=== PATIENT | female | born 1950 | race Caucasian/White ===

== ENCOUNTER 2023-08-26 10:47 | Outpatient (OUT) | payer MEDICARE, OTHER, SELFPAY ==
--- NOTE | 2023-08-26 11:06 | CT_ITS ---
[address] [address] Patient Name: PINA MEREDITH MRN: [id number] date: 1950 Sex: F Assigned Patient Location: LAB Current Patient Location: Accession/Order Number: [id number] Exam Date: 08/26/2023 11:55 Report Date: 08/27/2023 06:40 At the request of: FREDRICK BILLY Procedure: CT abdomen pelvis wo/w con EXAMINATION: CT abdomen pelvis wo/w con HISTORY: Left Lower Quadrant Abdominal Pain R10.32 COMPARISON: CT abdomen pelvis 10/16/2022 TECHNIQUE: Axial, Coronal, and Sagittal images were obtained without and/or with IV contrast as indicated by examination type. Dose reduction techniques were achieved by using automated exposure control and/or adjustment of mA and/or kV according to patient size and/or use of iterative reconstruction technique. FINDINGS: LUNG BASES: No visible pulmonary or pleural disease. LIVER: No enlargement, atrophy, suspicious density, or significant focal lesion. BILIARY: Cholecystectomy. PANCREAS: No lesion, fluid collection, or abnormal duct dilatation. SPLEEN: No enlargement or focal lesion. ADRENALS: 3.0 x 1.9 cm right adrenal mass with areas of fat density favoring a benign adenoma. KIDNEYS: No mass, obstruction, or calcification. BOWEL/MESENTERY: Diverticulosis of descending and sigmoid colon. Trace amount of stranding within the pericolonic fat adjacent proximal descending colon. No visible mass, obstruction, or bowel wall thickening. Normal appendix. AORTA/VASCULAR: No aneurysm or dissection. RETROPERITONEUM: No mass or adenopathy. LYMPH NODES: No adenopathy. URINARY BLADDER: No visible focal wall thickening, lesion, or calculus. PELVIC ORGANS: 2.4 cm left ovarian cyst. ABDOMINAL WALL: No mass or hernia. BONES: Mechanical fusion L4-5 with grade 1-2 anterior listhesis of L4-5 and intervertebral disc spacer. OTHER: Negative. CT/CT abdomen pelvis wo/w con IMPRESSION: 1. Left ovarian 2.4 cm cyst; unexpected in a patient this age. Consider follow-up ultrasound evaluation. 2. Minimal fat stranding adjacent the sigmoid colon; mild acute diverticulitis versus chronic changes. Electronically authenticated by: GREGG ROBB Date: 08/27/2023 06:40
[2023-08-26 11:20] LABS: Anion Gap 18.5; BUN Creatinine Ratio 19.6; Calcium 9.3 mg/dL (8.5-10.1); Carbon Dioxide 22.1 mmol/L (21.0-32.0); Chloride 104 mmol/L (98-107); Estimated GFR (African America >60 (>=60); Estimated GFR (Non-African Ame 50 (>=60); Glucose 76 mg/dL (74-106); Sodium 140 mmol/L (136-145)
[2023-08-26 11:25] LABS: Estimated Average Glucose 206 mg/dL; Glycohemoglobin A1C 8.8 % (4.5-6.2)
[2023-08-26 11:36] LABS: Potassium 4.6 mmol/L (3.5-5.1)
[2023-08-26 11:38] LABS: Alanine Aminotransferase 26 U/L (14-59); Albumin Globulin Ratio 0.7; Albumin Level 3.2 g/dL (3.4-5.0); Alkaline Phosphatase 61 U/L (46-116); Aspartate Amino Transferase 21 U/L (15-37); Bilirubin Direct 0.1 mg/dL (0.0-0.2); Bilirubin Total 0.4 mg/dL (0.2-1.0); Chol HDL Ratio 4.3; Cholesterol 246 mg/dL (<=200); Globulin 4.3 g/dL; HDL Cholesterol 57 mg/dL (40-60); Thyroid Stimulating Hormone 1.726 uIU/mL (0.358-3.740); Total Protein 7.5 g/dL (6.4-8.2); Triglycerides 144 mg/dL (<=150); VLDL CHOLESTEROL 28.8 mg/dL
[2023-08-26 11:49] LABS: Basophils Absolute Auto 0.1 10^3/uL (0.0-0.1); Basophils Percent Auto 1.1 % (0.2-2.0); Eosinophils Absolute Auto 0.2 10^3/uL (0.0-0.7); Eosinophils Percent Auto 2.8 % (0.9-7.0); Hematocrit 35.1 % (36.0-48.0); Immature Granulocytes Abs Auto 0.02 10^3/uL (0.00-0.03); Immature Granulocytes Pct Auto 0.3 % (0.0-0.5); Lymphocytes Absolute Auto 2.7 10^3/uL (1.2-3.8); Lymphocytes Percent Auto 37.4 % (20.5-60.0); Mean Corpuscular HGB Conc 31.3 g/dL (29.9-35.2); Mean Corpuscular Hemoglobin 27.6 pg (26.7-34.0); Mean Platelet Volume 10.6 fL (9.5-13.5); Monocytes Absolute Auto 0.5 10^3/uL (0.3-0.8); Monocytes Percent Auto 6.6 % (1.7-12.0); Neutrophils Absolute Auto 3.7 10^3/uL (1.4-6.5); Neutrophils Percent Auto 51.8 % (43.0-75.0); Platelet Count 291 10^3/uL (150-450); Red Blood Count 3.99 10^6/uL (4.20-5.40); Red Cell Distribution Width 13.7 % (11.0-15.0); White Blood Count 7.2 10^3/uL (4.0-11.0)
== END 2023-08-26 10:48 | disposition home or self-care (01) ==
LOC: LAB 10:47
PROVIDERS: PCP Family Medicine; Visit Provider Family Medicine
DX: R10.32 Left lower quadrant pain (principal); K57.30 Diverticulosis of large intestine without perforation or abscess without bleeding; E11.65 Type 2 diabetes mellitus with hyperglycemia; Z79.4 Long term (current) use of insulin; I10 Essential (primary) hypertension; E78.5 Hyperlipidemia, unspecified; E66.01 Morbid (severe) obesity due to excess calories; Z79.899 Other long term (current) drug therapy; N83.202 Unspecified ovarian cyst, left side
CPT/HCPCS: 36415; 74178; 80048; 80061; 80076; 83036; 84443; 85025; Q9967

== ENCOUNTER 2023-09-23 09:31 | Outpatient (OUT) | payer MEDICARE, OTHER, SELFPAY ==
--- NOTE | 2023-09-23 09:33 | MM_ITS ---
Patient Name: PINA MEREDITH MR#: [id number] : 1950 Exam Date: 09/23/2023 Ordering Doctor: DR Anival Tran . RADIOLOGY REPORT PROCEDURE: MM TOMOSYNTHESIS SCREENING BI COMPARISON: MG MAMM SCREEN 3D ISAIAH CAD, 09/16/2022. MG MAMM SCREEN 3D ISAIAH CAD, 08/21/2020. INDICATIONS: Screening Calculator Name NCI Breast Cancer Risk Assessment Tool 5 Year Breast Cancer Risk 1.60% Lifetime Breast Cancer Risk 3.90% Personal Breast Cancer No Personal Ovarian Cancer No Treatments None Family Cancers None LOCATION: [facility] BREAST COMPOSITION: There are scattered areas of fibroglandular density. FINDINGS: DIAGNOSTIC CATEGORY 1--NEGATIVE. NO CHANGE FROM COMPARISON ASSESSMENT. Scattered benign-appearing calcifications are present. Scattered benign-appearing lymph nodes are present. RIGHT BREAST: No significant suspicious finding. LEFT BREAST: No significant suspicious finding. RECOMMENDATIONS: ROUTINE MAMMOGRAM AND CLINICAL EVALUATION IN 12 MONTHS. PLEASE NOTE: A NORMAL MAMMOGRAM DOES NOT EXCLUDE THE POSSIBILITY OF BREAST CANCER. A CLINICALLY SUSPICIOUS PALPABLE LUMP SHOULD BE BIOPSIED. Dictated by: Efrem Chen MD on 09/23/2023 at 13:56 Approved by: Efrem Chen MD on 09/23/2023 at 13:57
== END 2023-09-23 09:32 | disposition home or self-care (01) ==
LOC: MAMMO 09:32
PROVIDERS: PCP Family Medicine; Visit Provider Family Medicine
DX: Z12.31 Encounter for screening mammogram for malignant neoplasm of breast (principal)
CPT/HCPCS: 77063; 77067

== ENCOUNTER 2024-06-11 12:37 | Outpatient (OUT) | payer MEDICARE, OTHER, SELFPAY ==
[2024-06-11 13:55] LABS: Estimated Average Glucose 171 mg/dL; Glycohemoglobin A1C 7.6 % (4.5-6.2)
[2024-06-11 14:19] LABS: Microalbumin Urine Random 9.9 mg/dL (<=30.0)
== END 2024-06-11 12:38 | disposition home or self-care (01) ==
LOC: LAB 12:39
PROVIDERS: PCP Family Medicine; Visit Provider Family Medicine
DX: E11.65 Type 2 diabetes mellitus with hyperglycemia (principal); Z79.4 Long term (current) use of insulin
CPT/HCPCS: 36415; 82043; 83036

== ENCOUNTER 2024-12-09 12:54 | Outpatient (OUT) | payer MEDICARE, SELFPAY ==
--- OUTSIDE RECORDS SUMMARY | 2024-12-09 12:56 | XMS_ITS | Clinical Summary ---
Author Organization [facility] [facility] Address [id number] [address] [place] [address] Care Team Providers Care Divider Operator Name Role Phone Anival Tran MD Primary Care Provider [phone] Allergies No known active allergies Medications metFORMIN (GLUCOPHAGE) 1000 mg tablet Take 1,000 mg by mouth 2 (two) times a day with meals. Active omeprazole (PriLOSEC) 20 mg capsule Take 20 mg by mouth daily. Active lisinopril-hydr oCHLOROthiazide (PRINZIDE,ZESTO RETIC) 20-25 mg per tablet Take 1 tablet by mouth daily. Active aspirin 81 mg chewable tablet Chew 81 mg and swallow daily. Active insulin detemir U-100 (LEVEMIR) 100 unit/mL injection Inject 31 Units under the skin nightly. Active Active Problems No known active problems Social History Tobacco Use Types Packs/Day Years Used Date Smoking Tobacco: Never Assessed Childcare Answer Date Recorded Childcare Unknown 11/11/2018 Employment Answer Date Recorded Employment Unknown 11/11/2018 Purpose - Life Answer Date Recorded Purpose and direction in life Unknown Comments No Sex and Gender Information Value Date Recorded Sex Assigned at Not on file Legal Sex Female 11:44 AM EDT Gender Identity Not on file Sexual Orientation Not on file Last Filed Vital Signs Vital Sign Reading Time Taken Comments Blood Pressure 122/65 06/17/2019 9:58 AM EST Pulse 112 06/17/2019 9:40 AM EST Temperature 36.7 C (98 F) 06/17/2019 8:06 AM EST Respiratory Rate 16 06/17/2019 9:40 AM EST Oxygen Saturation 98% 06/17/2019 9:49 AM EST Inhaled Oxygen Concentration - - Weight 111.1 kg (245 lb) 06/17/2019 8:06 AM EST Height 154.9 cm (5' 1 ) 06/17/2019 8:06 AM EST Body Mass Index 46.29 06/17/2019 8:06 AM EST Plan of Treatment Health Maintenance Due Date Last Done Comments Depression Screening 1962 Tobacco Screening 1962 Adult BMI Screening 1968 DTaP,Tdap and Td Vaccines (1 - Tdap) 1969 Zoster (Shingles) Vaccine (1 of 2) 2000 Fall Risk Screening 2015 Influenza Vaccine 01/31/2025 Medical Devices Not on file Insurance MEDICARE [facility] Care Teams Divider Operator Relationship Specialty Start Date End Date Anival Tran MD PCP - General 10/22/16
--- OUTSIDE RECORDS SUMMARY | 2024-12-09 12:56 | XMS_ITS | Encounter Summary ---
Author Organization [facility] Address [address] [place] [address] Care Team Providers Care Display Artist Name Role Phone Fredrick Billy MD Primary Care Provider [phone] Fredrick Billy MD Unavailable Encounter Details Date Type Department Care Team (Late st Contact Info) Description 08/27/2023 Clinisync Result Encounter [facility] External Department Unsolicited Fredrick Billy MD [address] [place] [phone] Social History Tobacco Use Types Packs/Day Years Used Date Smoking Tobacco: Former Cigarettes Smokeless Tobacco: Never Comments:Last smoked : > 10 years Alcohol Use Standard Drinks/Week Comments Never 0 (1 standard drink = 0.6 oz pure alcohol) caffeine: 3-4 cups per day ; pop Social Connection and Isolation Panel [NHANES] A nswer Date Recorded In a typical week, how many times do you talk on the phone with family, friends, or neighbors? Twice a week 08/05/2023 How often do you get togethe r with friends or relatives? Once a week 08/05/2023 How often do you attend religion or spiritism serv ices? Patient declined 08/05/2023 Do you belong to any clubs o r organizations such as religion groups, unions, fraternal or athletic groups, or school groups? Patient declined 08/05/2023 How often do you attend meet ings of the clubs or organizations you belong to? Patient declined 08/05/2023 Are you , , di vorced, , never , or living with a partner? 08/05/2023 AUDIT-C Answer Date Recorded Q1: How often do you have a drink containing alcohol? Never 08/05/2023 Q2: How many drinks containi ng alcohol do you have on a typical day when you are drinking? Patient does not drink Q3: How often do you have si x or more drinks on one occasion? Never 08/05/2023 Overall Financial Resource Strain (CARDIA) Answe r Date Recorded How hard is it for you to pa y for the very basics like food, housing, medical care, and heating? Not hard at all 08/05/2023 [facility] [place] of Occupat ional Health - Occupational Stress Questionnaire Answer Date Recorded Do you feel stress - tense, restless, nervous, or anxious, or unable to sleep at night because your mind is troubled all the time - these days? To some extent 08/05/2023 Exercise Vital Sign Answer Date Recorde d On average, how many days pe r week do you engage in moderate to strenuous exercise (like a brisk walk)? 3 days 08/05/2023 On average, how many minutes do you engage in exercise at this level? 20 min 08/05/2023 Hunger Vital Sign Answer Date Recorded Within the past 12 months, y ou worried that your food would run out before you got the money to buy more. Never true 08/05/19 24 Within the past 12 months, t he food you bought just didn't last and you didn't have money to get more. Never true 08/05/2023 PRAPARE - Transportation Answer Date Re corded In the past 12 months, has l ack of transportation kept you from medical appointments or from getting medications? No 10/2023 In the past 12 months, has l ack of transportation kept you from meetings, work, or from getting things needed for daily living? No 08/05/2023 Housing Stability Vital Sign Answer Nazario e Recorded In the last 12 months, was t here a time when you were not able to pay the mortgage or rent on time? No 08/05/2023 In the last 12 months, how many places have you lived? 1 08/05/2023 In the last 12 months, was t here a time when you did not have a steady place to sleep or slept in a group home (including now)? No 08/05/2023 Comments Unknown Sex and Gender Information Value Date Recorded Sex Assigned at Not on file Legal Sex Female 6:58 PM EDT Gender Identity Not on file Sexual Orientation Not on file documented as of this encounter Plan of Treatment Upcoming Encounters Date Type Department Care Team (Late st Contact Info) Description 04/13/2025 1:30 PM EST Office Visit [facility] [address] [place] [address] Fredrick Billy MD [address] [place] [address] documented as of this encounter Procedures Procedure Name Priority Date/Time Associated Diagnosis Comments CT ABDOMEN PELVIS WO/W CON 08/27/2023 6:40 AM EDT documented in this encounter Results * CT ABDOMEN PELVIS WO/W CON (08/27/2023 6:40 AM EDT) Anatomical Region Laterality Modality Other 08/27/2023 6:40 AM EDT Narrative 08/27/2023 6:43 AM EDT [address] [address] [address] Scan Report Signed Patient: Pina Sahu MR#: [id number] : 1950 Acct:[id number] Age/Sex: 73 / F ADM Date: 08/26/23 Loc: LAB Attending Dr: Fredrick Billy M.D. Ordering Physician: Fredrick Billy M.D. Date of Service: 08/26/23 Procedure(s): CT abdomen pelvis wo/w con Accession Number(s): [id number] cc: Fredrick Billy M.D. [address] [address] Patient Name: PINA SAHU MRN: [id number] date: 1950 Sex: F Assigned Patient Location: LAB Current Patient Location: Accession/Order Number: [id number] Exam Date: 08/26/2023 11:55 Report Date: 08/27/2023 06:40 At the request of: FREDRICK BILLY Procedure: CT abdomen pelvis wo/w con EXAMINATION: CT abdomen pelvis wo/w con HISTORY: Left Lower Quadrant Abdominal Pain R10.32 COMPARISON: CT abdomen pelvis 10/16/2022 TECHNIQUE: Axial, Coronal, and Sagittal images were obtained without and/or with IV contrast as indicated by examination type. Dose reduction techniques were achieved by using automated exposure control and/or adjustment of mA and/or kV according to patient size and/or use of iterative reconstruction technique. FINDINGS: LUNG BASES: No visible pulmonary or pleural disease. LIVER: No enlargement, atrophy, suspicious density, or significant focal lesion. BILIARY: Cholecystectomy. PANCREAS: No lesion, fluid collection, or abnormal duct dilatation. SPLEEN: No enlargement or focal lesion. ADRENALS: 3.0 x 1.9 cm right adrenal mass with areas of fat density favoring a benign adenoma. KIDNEYS: No mass, obstruction, or calcification. BOWEL/MESENTERY: Diverticulosis of descending and sigmoid colon. Trace amount of stranding within the pericolonic fat adjacent proximal descending colon. No visible mass, obstruction, or bowel wall thickening. Normal appendix. AORTA/VASCULAR: No aneurysm or dissection. RETROPERITONEUM: No mass or adenopathy. LYMPH NODES: No adenopathy. URINARY BLADDER: No visible focal wall thickening, lesion, or calculus. PELVIC ORGANS: 2.4 cm left ovarian cyst. ABDOMINAL WALL: No mass or hernia. BONES: Mechanical fusion L4-5 with grade 1-2 anterior listhesis of L4-5 and intervertebral disc spacer. OTHER: Negative. CT/CT abdomen pelvis wo/w con IMPRESSION: 1. Left ovarian 2.4 cm cyst; unexpected in a patient this age. Consider follow-up ultrasound evaluation. 2. Minimal fat stranding adjacent the sigmoid colon; mild acute diverticulitis versus chronic changes. Electronically authenticated by: DAVON JIMENEZ Date: 08/27/2023 06:40 Dictated By: Davon Jimenez M.D. Signed By: 08/27/2343 DD/ 9 TD/TT: Photograph Inspector: Procedure Note Radiology, Radiologist, - 08/27/[address] [address] [address] Scan Report Signed Patient: Pina Sahu [facility]#: [id number] : 1950cct:[id number] Age/Sex: 73 / FADM Date: 08/26/23 Loc: LAB Attending Dr: Fredrick Billy M.D. Ordering Physician: Fredrick Billy M.D. Date of Service: 08/26/23 Procedure(s): CT abdomen pelvis wo/w con Accession Number(s): [id number] cc: Fredrick Billy M.D. The [address] [address] Patient Name: PINA SAHU MRN: [id number] date: 1950 Sex: F Assigned Patient Location: LAB Current Patient Location: Accession/Order Number: [id number] Exam Date: 08/26/2023 11:55 Report Date: 08/27/2023 06:40 At the request of: FREDRICK BILLY Procedure: CT abdomen pelvis wo/w con EXAMINATION: CT abdomen pelvis wo/w con HISTORY: Left Lower Quadrant Abdominal Pain R10.32 COMPARISON: CT abdomen pelvis 10/16/2022 TECHNIQUE: Axial, Coronal, and Sagittal images were obtained withoutand/or with IV contrast as indicated by examination type. Dose reductiontechniques were achieved by using automated exposure control and/or adjustment of mA and/or kV according to patient size and/or use of iterative reconstruction technique. FINDINGS: LUNG BASES: No visible pulmonary or pleural disease. LIVER: No enlargement, atrophy, suspicious density, or significant focal lesion. BILIARY: Cholecystectomy. PANCREAS: No lesion, fluid collection, or abnormal duct dilatation. SPLEEN: No enlargement or focal lesion. ADRENALS: 3.0 x 1.9 cm right adrenal mass with areas of fat densityfavoring a benign adenoma. KIDNEYS: No mass, obstruction, or calcification. BOWEL/MESENTERY: Diverticulosis of descending and sigmoid colon. Traceamount of stranding within the pericolonic fat adjacent proximal descendingcolon. No visible mass, obstruction, or bowel wall thickening. Normal appendix. AORTA/VASCULAR: No aneurysm or dissection. RETROPERITONEUM: No mass or adenopathy. LYMPH NODES: No adenopathy. URINARY BLADDER: No visible focal wall thickening, lesion, or calculus. PELVIC ORGANS: 2.4 cm left ovarian cyst. ABDOMINAL WALL: No mass or hernia. BONES: Mechanical fusion L4-5 with grade 1-2 anterior listhesis of L4-5and intervertebral disc spacer. OTHER: Negative. CT/CT abdomen pelvis wo/w con IMPRESSION: 1. Left ovarian 2.4 cm cyst; unexpected in a patient this age. Consider follow-up ultrasound evaluation. 2. Minimal fat stranding adjacent the sigmoid colon; mild acutediverticulitis versus chronic changes. Electronically authenticated by: DAVON JIMENEZ Date: 08/27/2023 06:40 Dictated By: Davon Jimenez M.D. Signed By:08/27/2343 DD/ 9 TD/TT: Photograph Inspector: Fredrick Billy MD [facility] Final Result documented in this encounter Visit Diagnoses Not on filedocumented in this encounter Care Teams Display Artist Relationship Specialty Start Date End Date Fredrick Billy MD [address] [place] [address] PCP - General Family Medicine 08/20/23 Fredrick Billy MD [address] [place] [address] PCP - ACO Reach 07/09/24 11/30/24 documented as of this encounter
--- OUTSIDE RECORDS SUMMARY | 2024-12-09 12:56 | XMS_ITS | Encounter Summary ---
Author Organization [facility] Address [address] [place] [address] Care Team Providers Care Sewing Machine Adjuster Name Role Phone Anival Tran MD Primary Care Provider [phone] Anival Tran MD Unavailable Encounter Details Date Type Department Care Team (Late st Contact Info) Description 09/23/2023 Orders Only [facility] [address] [place] [address] Anival Tran MD [address] [place] [address] Social History Tobacco Use Types Packs/Day Years [...] week 08/05/2023 How often do you attend samaritan or latter-day serv ices? Patient declined 08/05/2023 Do you belong to any clubs o r organizations such as samaritan groups, unions, fraternal or athletic groups, or [...] and heating? Not hard at all 08/05/2023 [facility] [place] of Occupat ional Health - Occupational Stress [...] place to sleep or slept in a usp (including now)? No 08/05/2023 Comments Unknown Sex and Gender Information Value Date Recorded Sex Assigned at Not on file Legal Sex Female 6:58 PM EDT Gender Identity Not on file Sexual Orientation Not on file documented as of this encounter Plan of Treatment Upcoming Encounters Date Type Department Care Team (Late st Contact Info) Description 04/13/2025 1:30 PM EST Office Visit [facility] [address] [place] [address] Anival Tran MD [address] [place] [address] documented as of this encounter Procedures Procedure Name Priority Date/Time Associated Diagnosis Comments MM SCREENING MAMM WITH 3D FREDY - US AND ADDITIONAL Routine 09/23/2023 4:24 PM EDT documented in this encounter Results * MM SCREENING MAMM WITH 3D FREDY - US AND ADDITIONAL (09/23/2023 4:24 PM EDT) Anatomical Region Laterality Modality Radiographic Padmaja ging Anival Tran MD IMG XR PROCEDURES Final Result documented in this encounter Visit Diagnoses Not on filedocumented in this encounter Care Teams Sewing Machine Adjuster Relationship Specialty Start Date End Date Anival Tran MD [address] [place] [address] PCP - General Family Medicine 08/20/23 Anival Tran MD [address] [place] [address] PCP - ACO Reach 07/09/24 11/30/24 documented as of this encounter
--- OUTSIDE RECORDS SUMMARY | 2024-12-09 12:56 | XMS_ITS | Encounter Summary ---
Author Organization [facility] Address [address] [place] [address] Care Team Providers Care Engine Repairer Production Name Role Phone Anival Tran MD Primary Care Provider Anival Tran MD Unavailable Encounter Details Date Type Department Care Team (Late st Contact Info) Description 09/23/2023 Clinisync Result Encounter [facility] External Department Unsolicited Anival Tran MD [address] [place] [phone] Social History Tobacco Use Types Packs/Day Years [...] week 08/05/2023 How often do you attend quaker or temple serv ices? Patient declined 08/05/2023 Do you belong to any clubs o r organizations such as quaker groups, unions, fraternal or athletic groups, or [...] and heating? Not hard at all 08/05/2023 [facility] [place] of Occupat ional Health - Occupational Stress [...] place to sleep or slept in a penitentiary (including now)? No 08/05/2023 Comments Unknown Sex [...] Office Visit [facility] [address] [place] [address] Anival Tran MD [address] [place] [address] documented as of this encounter Procedures Procedure Name Priority Date/Time Associated Diagnosis Comments MM TOMOSYNTHESIS SCREENING BI 09/23/2023 1:58 PM EDT documented in this encounter Results * MM TOMOSYNTHESIS SCREENING BI (09/23/2023 1:58 PM EDT) Anatomical Region Laterality Modality Other 09/23/2023 1:58 PM EDT Narrative 09/23/2023 1:58 [place] [address] Mammography Report Signed Patient: Pina Sahu MR#: [id number] : 1950 Acct:[id number] Age/Sex: 73 / F ADM Date: 09/23/23 Loc: MAMMO Attending Dr: Anival Tran M.D. Ordering Physician: Anival Tran M.D. Results: Date of Service: 09/23/23 Follow Up: Procedure(s): MM tomosynthesis screening BI Accession Number(s): [id number] cc: Anival Tran M.D. Patient Name: PINA SAHU MR#: [id number] : 1950 Exam Date: 09/23/2023 Ordering Doctor: DR Anival Tran . RADIOLOGY REPORT PROCEDURE: MM TOMOSYNTHESIS SCREENING BI COMPARISON: MG MAMM SCREEN 3D ISAIAH CAD, 09/16/2022. MG MAMM SCREEN 3D ISAIAH CAD, 08/21/2020. INDICATIONS: Screening Calculator Name NCI Breast Cancer Risk Assessment Tool 5 Year Breast Cancer Risk 1.60% Lifetime Breast Cancer Risk 3.90% Personal Breast Cancer No Personal Ovarian Cancer No Treatments None Family Cancers None LOCATION: [facility] BREAST COMPOSITION: There are scattered areas of fibroglandular density. FINDINGS: DIAGNOSTIC CATEGORY 1--NEGATIVE. NO CHANGE FROM COMPARISON ASSESSMENT. Scattered benign-appearing calcifications are present. Scattered benign-appearing lymph nodes are present. RIGHT BREAST: No significant suspicious finding. LEFT BREAST: No significant suspicious finding. RECOMMENDATIONS: ROUTINE MAMMOGRAM AND CLINICAL EVALUATION IN 12 MONTHS. PLEASE NOTE: A NORMAL MAMMOGRAM DOES NOT EXCLUDE THE POSSIBILITY OF BREAST CANCER. A CLINICALLY SUSPICIOUS PALPABLE LUMP SHOULD BE BIOPSIED. Dictated by: Efrem Chen MD on 09/23/2023 at 13:56 Approved by: Efrem Chen MD on 09/23/2023 at 13:57 Dictated By: Efrem Chen M.D. Signed By: 09/23/23 1358 DD/ 1358 TD/TT: Airframe Technical Officer: Procedure Note Radiology, Radiologist, MD - 09/23/2023 [place] [address] Mammography Report Signed Patient: Pina Sahu SMR#: [id number] : 1950cct:[id number] Age/Sex: 73 / FADM Date: 09/23/23 Loc: MAMMO Attending Dr: Anival Tran M.D. Ordering Physician: Anival Tran M.D.Results: Date of Service: 09/23/23Follow Up: Procedure(s): MM tomosynthesis screening BI Accession Number(s): [id number] cc: Anival Tran M.D. Patient Name: PINA SAHU MR#: [id number] : 1950 Exam Date: 09/23/2023 Ordering Doctor: DR Anival Ricardo RADIOLOGY REPORT PROCEDURE: MM TOMOSYNTHESIS SCREENING BI COMPARISON: MG MAMM SCREEN 3D ISAIAH CAD, 09/16/2022. MG MAMM SCREEN 3DBIL CAD, 08/21/2020. INDICATIONS: Screening Calculator Name NCI Breast Cancer Risk Assessment Tool 5 Year Breast Cancer Risk 1.60% Lifetime Breast Cancer Risk 3.90% Personal Breast Cancer No Personal Ovarian Cancer No Treatments None Family Cancers None LOCATION: [facility] BREAST COMPOSITION: There are scattered areas of fibroglandulardensity. FINDINGS: DIAGNOSTIC CATEGORY 1--NEGATIVE. NO CHANGE FROM COMPARISON ASSESSMENT. Scattered benign-appearing calcifications are present. Scattered benign-appearing lymph nodes are present. RIGHT BREAST: No significant suspicious finding. LEFT BREAST: No significant suspicious finding. RECOMMENDATIONS: ROUTINE MAMMOGRAM AND CLINICAL EVALUATION IN 12 MONTHS. PLEASE NOTE: A NORMAL MAMMOGRAM DOES NOT EXCLUDE THE POSSIBILITY OFBREAST CANCER. A CLINICALLY SUSPICIOUS PALPABLE LUMP SHOULD BE BIOPSIED. Dictated by: Efrem Chen MD on 09/23/2023 at 13:56 Approved by: Efrem Chen MD on 09/23/2023 at 13:57 Dictated By: Efrem Chen M.D. Signed By:09/23/23 1358 DD/ 1358 TD/TT: Airframe Technical Officer: Anival Tran MD [facility] Final Result documented in this encounter Visit Diagnoses Not on filedocumented in this encounter Care Teams Engine Repairer Production Relationship Specialty Start Date End Date Anival Tran MD [address] [place] [address] PCP - General Family Medicine 08/20/23 Anival Tran MD [address] [place] [address] PCP - ACO Reach 07/09/24 11/30/24 documented as of this encounter
--- NOTE | 2024-12-09 13:53 | MM_ITS ---
Patient Name: PINA MEREDITH MR#: [id number] : 1950 Exam Date: 12/09/2024 Ordering Doctor: DR FREDRICK BILLY . RADIOLOGY REPORT PROCEDURE: MM TOMOSYNTHESIS SCREENING BI COMPARISON: MM TOMOSYNTHESIS SCREENING BI, 09/23/2023. MG MAMM SCREEN 3D ISAIAH CAD, 09/16/2022. MG MAMM SCREEN 3D ISAIAH CAD, 08/21/2020. MG MAMM ISAIAH SCRN W CAD DIG, 04/30/2013. INDICATIONS: Screening Calculator Name NCI Breast Cancer Risk Assessment Tool 5 Year Breast Cancer Risk 1.60% Lifetime Breast Cancer Risk 3.70% Personal Breast Cancer No Personal Ovarian Cancer No Treatments None Family Cancers Brother with skin cancer cancer at age ~65; Brother with prostate cancer at age ~70. LOCATION: [facility] BREAST COMPOSITION: There are scattered areas of fibroglandular density. FINDINGS: RIGHT BREAST: No significant suspicious finding. LEFT BREAST: No significant suspicious finding. DIAGNOSTIC CATEGORY 1--NEGATIVE. RECOMMENDATIONS: ROUTINE MAMMOGRAM AND CLINICAL EVALUATION IN 12 MONTHS. PLEASE NOTE: A NORMAL MAMMOGRAM DOES NOT EXCLUDE THE POSSIBILITY OF BREAST CANCER. A CLINICALLY SUSPICIOUS PALPABLE LUMP SHOULD BE BIOPSIED. Dictated by: Jermaine Hernandez DO on 12/09/2024 at 15:25 Approved by: Jermaine Hernandez DO on 12/09/2024 at 15:33
== END 2024-12-09 12:55 | disposition home or self-care (01) ==
LOC: MAMMO 12:55
PROVIDERS: PCP Family Medicine; Visit Provider Family Medicine
DX: Z12.31 Encounter for screening mammogram for malignant neoplasm of breast (principal); E11.65 Type 2 diabetes mellitus with hyperglycemia; Z79.4 Long term (current) use of insulin; Z80.8 Family history of malignant neoplasm of other organs or systems; Z80.42 Family history of malignant neoplasm of prostate
CPT/HCPCS: 36415; 77063; 77067; 83036